=== PATIENT | male | born 1955 | race Caucasian/White ===

== ENCOUNTER → 2017-02-06 09:40 | Outpatient (CLI) | payer OTHER | END | disposition home or self-care (01) | LOC: D.US 09:40 | DX: R94.5 Abnormal results of liver function studies (principal) ==

== ENCOUNTER 2017-11-22 11:40 | Emergency (ER) | payer OTHER ==
[~2017-11-22] VITALS: Ht 165.1 cm; Wt 82.7 kg
[2017-11-22 12:08] VITALS: Ht 165.1 cm; Wt 82.7 kg
[2017-11-22] MEDS ORDERED: DEPAKOTE500 MG PO (12:12)
[2017-11-22] MEDS ORDERED: SEROQUEL25 MG PO (12:12)
[2017-11-22] MEDS ORDERED: MOBIC7.5 MG PO (12:13)
[2017-11-22] MEDS ORDERED: OMEPRAZOLE40 MG PO (12:13)
[2017-11-22] MEDS ORDERED: ZOCOR20 MG PO (12:13)
[2017-11-22] MEDS ORDERED: GEMFIBROZIL600 MG PO (12:13)
[2017-11-22] MEDS ORDERED: FLAGYL500 MG PO (12:14)
[2017-11-22 13:09] LABS: BASOPHILS 0.3 % (0-2); EOSINOPHILS 0.1 % (0-7); HEMATOCRIT 51.3 % (42.0-54.0); HEMOGLOBIN 18.4 g/dL (13.5-17.5); IMMATURE GRANULOCYTES 0.5 % (0-5); LYMPHOCYTES 8.7 % (15-50); MCH 33.8 pg (26.0-34.0); MCHC 35.9 g/dL (31.0-37.0); MCV 94.3 fL (80.0-100.0); MEAN PLATELET VOLUME 10.5 fL (7.4-10.4); MONOCYTES 7.3 % (2-11); NEUTROPHILS 83.1 % (40-80); PLATELET COUNT 174 10x3/uL (130-400); RBC 5.44 10x6/uL (4.20-6.10); RDW 12.7 % (11.5-14.5); WBC 10.1 10x3/uL (4.8-10.8)
[2017-11-22 13:19] LABS: APPEARANCE HAZY (CLEAR); BILIRUBIN NEGATIVE (NEGATIVE); COLOR DK YELLOW (YELLOW); GLUCOSE NEGATIVE (NEGATIVE); KETONE NEGATIVE (NEGATIVE); NITRITE NEGATIVE (NEGATIVE); PROTEIN NEGATIVE (NEGATIVE); SPECIFIC GRAVITY 1.015 (1.005-1.020); UROBILINOGEN NORMAL (NORMAL)
[2017-11-22 13:20] LABS: BACTERIA MODERATE /hpf (NONE SEEN); EPITHELIAL CELLS OCC /hpf (0-5); GRANULAR CAST RARE /lpf (NONE SEEN); HYALINE CAST 0-5 /lpf (NONE SEEN); MUCUS <1+ /lpf (NONE SEEN); RED CELLS - URINE OCC /hpf (0-5); WHITE CELLS - URINE OCC /hpf (0-5)
[2017-11-22 13:26] LABS: ALBUMIN 4.1 g/dL (3.4-5.0); ANION GAP 16.6 mmol/L (8-16); BILIRUBIN - TOTAL 0.32 mg/dL (0.2-1.3); CALCIUM 9.7 mg/dL (8.5-10.1); CARBON DIOXIDE 24.6 mmol/L (21.0-32.0); CREATININE - SERUM 1.7 mg/dL (0.6-1.3); POTASSIUM - SERUM 3.2 mmol/L (3.5-5.1); PROTEIN - SERUM 9.1 g/dL (6.4-8.2)
[2017-11-22] MEDS ORDERED: ZOFRAN ODT4 MG/UDTAB PO (14:55)
[2017-11-22] MEDS ORDERED: LOMOTIL TABLET1 TAB PO (14:55)
[2017-11-22 17:49] VITALS: BP 136/88
== END 2017-11-22 17:51 | disposition home or self-care (01) ==
LOC: D.ER 11:40 → EDBD 11:40 → D.ER 17:51
PROVIDERS: Emergency Medicine
DX: A08.4 Viral intestinal infection, unspecified (principal); E86.0 Dehydration; E87.6 Hypokalemia; K21.9 Gastro-esophageal reflux disease without esophagitis

== ENCOUNTER → 2018-08-13 11:52 | Outpatient (CLI) | payer OTHER ==
[~2018-08-13 11:52] MED LIST: DEPAKOTE500 MG PO; FLAGYL500 MG PO; GEMFIBROZIL600 MG PO; LOMOTIL TABLET1 TAB PO; MOBIC7.5 MG PO; OMEPRAZOLE40 MG PO; SEROQUEL25 MG PO; ZOCOR20 MG PO; ZOFRAN ODT4 MG/UDTAB PO
== END | disposition home or self-care (01) ==
LOC: D.RAD 11:52
DX: R07.81 Pleurodynia (principal); R06.02 Shortness of breath